=== PATIENT | female | born 1955 | race Caucasian/White ===

== ENCOUNTER → 2017-09-25 | Outpatient (CLI) | payer OTHER ==
[2017-09-25 13:27] LABS: BASO # 0.1 10^3/uL (0.0-0.2); BASO % 1.2 % (0.0-1.0); EOS # 0.1 10^3/uL (0.0-0.50); EOS % 1.6 % (0.0-3.0); HEMATOCRIT 43.6 % (36.0-47.0); HEMOGLOBIN 15.2 g/dl (12.0-16.0); IMMATURE GRANULOCYTE % 0.2 % (0-3.0); LYMPH # 1.5 10^3/uL (1.5-4.5); LYMPH % 30.7 % (24.0-44.0); MEAN CORPUSCULAR HEMOGLOBIN 32.9 pg (27.0-33.0); MEAN CORPUSCULAR HGB CONC 34.9 g/dl (32.0-36.5); MEAN CORPUSCULAR VOLUME 94.4 fl (80.0-96.0); MONO # 0.4 10^3/uL (0.0-0.8); MONO % 8.2 % (0.0-5.0); NEUTROPHILS # 2.8 10^3/uL (1.8-7.7); NEUTROPHILS % 58.1 % (36.0-66.0); PLATELET COUNT, AUTOMATED 233 10^3/uL (150-450); RED BLOOD COUNT 4.62 10^6/uL (4.00-5.40); WHITE BLOOD COUNT 4.9 10^3/uL (4.0-10.0)
[2017-09-25 13:43] LABS: AMORPHOUS SEDIMENT LARGE (NEGATIVE); APPEARANCE, URINE TURBID (CLEAR); BACTERIA, URINE AUTO NEGATIVE (NEGATIVE); BILIRUBIN, URINE AUTO NEGATIVE (NEGATIVE); BLOOD, URINE BLOOD NEGATIVE (NEGATIVE); COLOR, URINE YELLOW (YELLOW); GLUCOSE, URINE (UA) AUTO NEGATIVE (NEGATIVE); KETONE, URINE AUTO NEGATIVE (NEGATIVE); LEUKOCYTE ESTERASE, URINE AUTO NEGATIVE (NEGATIVE); MUCUS, URINE SMALL (NEGATIVE); NITRITE, URINE AUTO NEGATIVE (NEGATIVE); PROTEIN, URINE AUTO NEGATIVE (NEGATIVE); RBC, URINE AUTO 0 /HPF (0-3); SPECIFIC GRAVITY URINE AUTO 1.025 (1.002-1.035); SQUAMOUS EPITHELIAL CELL UR AU 0 /HPF (0-6); UROBILINOGEN, URINE AUTO 0.2 mg/dL (0.0-2.0); WBC, URINE AUTO 0 /HPF (0-3)
[2017-09-25 14:05] LABS: TOTAL 25(OH) VITAMIN D 18.6 NG/ML (30.0-100.0)
[2017-09-25 14:23] LABS: ESTIMATED AVERAGE GLUCOSE 120 MG/DL (60-110); HEMOGLOBIN A1c 5.8 %
[2017-09-25 14:38] LABS: ALBUMIN 4.1 GM/DL (3.2-5.2); ALBUMIN/GLOBULIN RATIO 1.21 (1.00-1.93); ALKALINE PHOSPHATASE 54 U/L (45-117); ALT/SGPT 58 U/L (12-78); ANION GAP 7 MEQ/L (8-16); AST/SGOT 38 U/L (7-37); BILIRUBIN,TOTAL 0.6 MG/DL (0.2-1.0); BLOOD UREA NITROGEN 14 MG/DL (7-18); CALCIUM LEVEL 9.5 MG/DL (8.8-10.2); CARBON DIOXIDE LEVEL 31 MEQ/L (21-32); CHLORIDE LEVEL 102 MEQ/L (98-107); CHOLESTEROL LEVEL 291 MG/DL (<200); CHOLESTEROL RISK RATIO 6.191 (<5); CREATININE FOR GFR 0.68 MG/DL (0.55-1.30); FREE T4 1.01 NG/DL (0.76-1.46); GLOMERULAR FILTRATION RATE > 60.0 (>45); GLUCOSE, FASTING 103 MG/DL (70-100); HDL CHOLESTEROL 47 MG/DL (>40); NON-HDL-C 244 MG/DL; POTASSIUM SERUM 4.1 MEQ/L (3.5-5.1); SODIUM LEVEL 140 MEQ/L (136-145); TOTAL PROTEIN 7.5 GM/DL (6.4-8.2); TRIGLYCERIDES LEVEL 240 MG/DL (<150)
== END ==
LOC: M WUC 09:47
DX: I10 Essential (primary) hypertension (principal); E78.5 Hyperlipidemia, unspecified; E66.3 Overweight
CPT/HCPCS: 84443

== ENCOUNTER 2018-02-02 08:10 | Day surgery (SDC) | payer OTHER ==
[2018-02-02] MEDS ORDERED: LIDOCAINE 2% INJ 100 MG/5 ML SDV (FOR ANES.) As Ordered (09:02)
[2018-02-02] MEDS ORDERED: PROPOFOL 200 MG/20 ML VIAL As Ordered ×2 (09:02→09:25)
[2018-02-02] MEDS ORDERED: LABETALOL HCL 100 MG/20 ML VIAL As Ordered (09:12)
[2018-02-02] MEDS ORDERED: NS 1,000 ML IV (09:15)
== END 2018-02-02 10:00 | disposition home or self-care (01) ==
LOC: M OPP 08:10
DX: Z12.11 Encounter for screening for malignant neoplasm of colon (principal); Z86.010 Personal history of colon polyps; D12.5 Benign neoplasm of sigmoid colon; D12.0 Benign neoplasm of cecum; K57.30 Diverticulosis of large intestine without perforation or abscess without bleeding; I10 Essential (primary) hypertension; E78.5 Hyperlipidemia, unspecified; K58.9 Irritable bowel syndrome, unspecified; M19.90 Unspecified osteoarthritis, unspecified site; Z78.0 Asymptomatic menopausal state; J45.909 Unspecified asthma, uncomplicated; Z88.8 Allergy status to other drugs, medicaments and biological substances; Z91.018 Allergy to other foods; Z80.3 Family history of malignant neoplasm of breast; Z79.899 Other long term (current) drug therapy
CPT/HCPCS: 45380

== ENCOUNTER → 2018-03-19 | Outpatient (CLI) | payer OTHER ==
[2018-03-19 16:03] LABS: ALBUMIN 4.1 GM/DL (3.2-5.2); ALBUMIN/GLOBULIN RATIO 1.24 (1.00-1.93); ALKALINE PHOSPHATASE 55 U/L (45-117); ALT/SGPT 55 U/L (12-78); AST/SGOT 36 U/L (7-37); BILIRUBIN,DIRECT 0.2 MG/DL (0.0-0.2); BILIRUBIN,TOTAL 0.7 MG/DL (0.2-1.0); CHOLESTEROL LEVEL 244 MG/DL (<200); CHOLESTEROL RISK RATIO 4.692 (<5); HDL CHOLESTEROL 52 MG/DL (>40); LDL CHOLESTEROL 159 MG/DL (<100); NON-HDL-C 192 MG/DL; TOTAL PROTEIN 7.4 GM/DL (6.4-8.2); TRIGLYCERIDES LEVEL 167 MG/DL (<150)
== END ==
LOC: M WUC 11:08
DX: E78.5 Hyperlipidemia, unspecified (principal)
CPT/HCPCS: 80076

== ENCOUNTER → 2018-04-22 | Outpatient (CLI) | payer OTHER | LOC: M RAD 11:03 | DX: Z12.31 Encounter for screening mammogram for malignant neoplasm of breast (principal); Z78.0 Asymptomatic menopausal state | CPT/HCPCS: 77067 ==

== ENCOUNTER → 2018-10-20 | Outpatient (CLI) | payer OTHER ==
[~2018-10-20] MED LIST: ALBU17IN2 INH; ATOR1TAB19; HYDR25TAB; LISI10TA4; MONT10TA2; MULT1TAB10 PO; NATU1TAB5; VITA500T3 PO; VITA50TA43 PO
[2018-10-20 12:52] LABS: BASO # 0.1 10^3/uL (0.0-0.2); BASO % 1.3 % (0.0-1.0); EOS # 0.1 10^3/uL (0.0-0.50); EOS % 2.6 % (0.0-3.0); HEMATOCRIT 41.1 % (36.0-47.0); LYMPH # 1.4 10^3/uL (1.5-4.5); LYMPH % 28.8 % (24.0-44.0); MEAN CORPUSCULAR HEMOGLOBIN 32.6 pg (27.0-33.0); MEAN CORPUSCULAR HGB CONC 34.1 g/dl (32.0-36.5); MEAN CORPUSCULAR VOLUME 95.6 fl (80.0-96.0); MONO # 0.4 10^3/uL (0.0-0.8); MONO % 9.2 % (0.0-5.0); NEUTROPHILS # 2.7 10^3/uL (1.8-7.7); NEUTROPHILS % 57.7 % (36.0-66.0); PLATELET COUNT, AUTOMATED 244 10^3/uL (150-450); WHITE BLOOD COUNT 4.7 10^3/uL (4.0-10.0)
[2018-10-20 13:06] LABS: APPEARANCE, URINE CLEAR (CLEAR); BACTERIA, URINE AUTO NEGATIVE (NEGATIVE); BILIRUBIN, URINE AUTO NEGATIVE (NEGATIVE); BLOOD, URINE BLOOD NEGATIVE (NEGATIVE); COLOR, URINE YELLOW (YELLOW); GLUCOSE, URINE (UA) AUTO NEGATIVE (NEGATIVE); KETONE, URINE AUTO NEGATIVE (NEGATIVE); LEUKOCYTE ESTERASE, URINE AUTO NEGATIVE (NEGATIVE); MUCUS, URINE SMALL (NEGATIVE); NITRITE, URINE AUTO NEGATIVE (NEGATIVE); PROTEIN, URINE AUTO NEGATIVE (NEGATIVE); RBC, URINE AUTO 1 /HPF (0-3); SPECIFIC GRAVITY URINE AUTO 1.027 (1.002-1.035); SQUAMOUS EPITHELIAL CELL UR AU 0 /HPF (0-6); UROBILINOGEN, URINE AUTO 0.2 mg/dL (0.0-2.0); WBC, URINE AUTO 0 /HPF (0-3)
[2018-10-20 13:26] LABS: ALBUMIN 3.8 GM/DL (3.2-5.2); ALT/SGPT 35 U/L (12-78); BILIRUBIN,TOTAL 0.5 MG/DL (0.2-1.0); BLOOD UREA NITROGEN 12 MG/DL (7-18); CALCIUM LEVEL 9.4 MG/DL (8.8-10.2); CARBON DIOXIDE LEVEL 31 MEQ/L (21-32); CHLORIDE LEVEL 106 MEQ/L (98-107); CHOLESTEROL LEVEL 271 MG/DL (<200); CHOLESTEROL RISK RATIO 5.313 (<5); CREATININE FOR GFR 0.65 MG/DL (0.55-1.30); FREE T4 1.06 NG/DL (0.76-1.46); GLOMERULAR FILTRATION RATE > 60.0 (>45); GLUCOSE, FASTING 101 MG/DL (70-100); HDL CHOLESTEROL 51 MG/DL (>40); LDL CHOLESTEROL 190 MG/DL (<100); MAGNESIUM LEVEL 2.1 MG/DL (1.8-2.4); NON-HDL-C 220 MG/DL; POTASSIUM SERUM 4.4 MEQ/L (3.5-5.1); SODIUM LEVEL 141 MEQ/L (136-145); THYROID STIMULATING HORMONE 0.961 uIU/ML (0.358-3.740); TOTAL 25(OH) VITAMIN D 69.3 NG/ML (30.0-100.0); TOTAL PROTEIN 6.5 GM/DL (6.4-8.2); TRIGLYCERIDES LEVEL 149 MG/DL (<150)
[2018-10-20 13:38] LABS: HEMOGLOBIN A1c 5.9 %
== END ==
LOC: M WUC 10:31
PROVIDERS: ATTEND Physician Assistant
DX: I10 Essential (primary) hypertension (principal)

== ENCOUNTER → 2018-12-16 | Outpatient (CLI) | payer OTHER ==
--- NOTE | 2018-12-16 10:26 | REP ---
RIGHT KNEE, FIVE VIEWS: HISTORY: Knee pain. There is no acute fracture or dislocation. There is mild narrowing of the medial knee joint space and medial patellofemoral joint space. There is minimal narrowing of the lateral knee joint space. Osteophytes are present on the patella and tibia. IMPRESSION:Degenerative change as described above. Electronically Signed by Ab Franco MD 12/16/2018 10:28 A
== END ==
LOC: M WUC 09:58
PROVIDERS: ATTEND Physician Assistant
DX: M17.11 Unilateral primary osteoarthritis, right knee (principal); M25.761 Osteophyte, right knee

== ENCOUNTER 2020-07-11 06:13 | Observation (INO) | payer OTHER ==
[~2020-07-11] VITALS: Ht 162.6 cm; Wt 76.8 kg
[~2020-07-11 06:13] MED LIST changes: -ALBU17IN2 INH; +CYAN500T14 PO; -HYDR25TAB; +HYDR25TAB PO; -LISI10TA4; +LISI10TA4 PO; -MONT10TA2; +MONT5TAB2 PO; +PROV108A INH; -VITA500T3 PO
[2020-07-11 07:04] LABS: BASO # 0.1 10^3/uL (0.0-0.2); EOS # 0.1 10^3/uL (0.0-0.5); HEMATOCRIT 44.4 % (36.0-47.0); HEMOGLOBIN 14.6 g/dl (12.0-15.5); LYMPH % 15.1 % (24.0-44.0); MEAN CORPUSCULAR HEMOGLOBIN 31.9 pg (27.0-33.0); MEAN CORPUSCULAR HGB CONC 32.9 g/dl (32.0-36.5); MEAN CORPUSCULAR VOLUME 96.9 fl (80.0-96.0); MONO # 0.3 10^3/uL (0.0-0.8); NEUTROPHILS # 5.3 10^3/uL (1.5-8.5); NEUTROPHILS % 78.3 % (36.0-66.0); PLATELET COUNT, AUTOMATED 248 10^3/uL (150-450); RED BLOOD COUNT 4.58 10^6/uL (4.00-5.40); WHITE BLOOD COUNT 6.8 10^3/uL (4.0-10.0)
--- NOTE | 2020-07-11 07:13 | REPVR ---
PROCEDURE INFORMATION: Exam: XR Chest, 1 View Exam date and time: 07/11/2020 6:55 AM Age: 65 years old Clinical indication: Cough and dyspnea; Additional info: Dyspnea/cough TECHNIQUE: Imaging protocol: XR of the chest Views: 1 view. COMPARISON: No relevant prior studies available. FINDINGS: Lungs: Unremarkable. No consolidation. Pleural space: Unremarkable. No pleural effusion. No pneumothorax. Heart/Mediastinum: Unremarkable. No cardiomegaly. Bones/joints: Unremarkable. IMPRESSION: No evidence for acute pulmonary disease. Electronically signed by: Lebron Gallegos On 07/11/2020 07:13:38 AM
[2020-07-11] MEDS ORDERED: methylPREDNISolone 125MG 2ML VIAL IV ONE (07:15)
[2020-07-11 07:23] LABS: INR 0.89; PROTHROMBIN TIME 12.2 SECONDS (12.5-14.3)
[2020-07-11 07:24] LABS: PARTIAL THROMBOPLASTIN TIME 24.3 SECONDS (24.2-38.5)
[2020-07-11 07:27] LABS: D-DIMER QUANT 476.01 ng/ml (<500)
[2020-07-11 07:29] LABS: ALBUMIN 4.1 GM/DL (3.2-5.2); ALT/SGPT 53 U/L (12-78); BILIRUBIN,DIRECT 0.1 MG/DL (0.0-0.2); BILIRUBIN,TOTAL 0.4 MG/DL (0.2-1.0); BLOOD UREA NITROGEN 16 MG/DL (7-18); CALCIUM LEVEL 9.4 MG/DL (8.8-10.2); CARBON DIOXIDE LEVEL 29 MEQ/L (21-32); CHLORIDE LEVEL 101 MEQ/L (98-107); CK-MB VALUE MASS 4.7 NG/ML (<3.6); CPK CREATINE PHOSPHOKINASE 217 U/L (26-192); CREATININE FOR GFR 0.85 MG/DL (0.55-1.30); GLOMERULAR FILTRATION RATE > 60.0 (>45); GLUCOSE, FASTING 129 MG/DL (70-100); MB/CK RELATIVE INDEX 2.17 (< OR =4); POTASSIUM SERUM 3.7 MEQ/L (3.5-5.1); SODIUM LEVEL 136 MEQ/L (136-145); TOTAL PROTEIN 7.8 GM/DL (6.4-8.2); TROPONIN I < 0.02 NG/ML (< 0.10)
[2020-07-11 07:44] LABS: C REACTIVE PROTEIN QUANTITATIV 0.34 MG/DL (0.00-0.30); FERRITIN 265 NG/ML (8-252); LDH LACTATE DEHYDROGENASE 213 U/L (84-246); MAGNESIUM LEVEL 1.8 MG/DL (1.8-2.4)
[2020-07-11 07:51] LABS: ABG BASE EXCESS 0.4 (-2.0-2.0); ABG HCO3 24.5 MEQ/L (22.0-26.0); ABG PARTIAL PRESSURE CO2 37.9 mmHg (35.0-45.0); ABG PARTIAL PRESSURE O2 78.5 mmHg (75.0-100.0); ABG STANDARD HCO3 24.8 MEQ/L (22.0-26.0); ABG TOTAL CO2 25.6 MEQ/L (23.0-31.0); ABG pH (ARTERIAL) 7.428 UNITS (7.350-7.450)
[2020-07-11] MEDS: COMBIVENT RESPIMAT 100-20MCG INHALER 4GM INH SCH ×3 (07:56→09:36)
[2020-07-11] MEDS ORDERED: ISOVUE-370 76% 100ML VIAL As Ordered ONE (07:59)
--- NOTE | 2020-07-11 08:52 | REP ---
INDICATION: sob, out of quarantine covid positive COMPARISON: None. TECHNIQUE: Axial contrast enhanced images from the thoracic inlet to the upper abdomen using pulmonary embolus technique with multiplanar re-formations. 75 ml Isovue 370 intravenous contrast material administered without complication. This CT examination was performed using the following dose reduction techniques: Automated exposure control, adjustment of mA and/or kv according to the patient's size, and use of iterative reconstruction technique. FINDINGS: Satisfactory enhancement of the pulmonary vasculature is achieved and no filling defects are identified to suggest pulmonary embolus. Further evaluation of the mediastinum demonstrates relatively normal thoracic aorta without aneurysm or dissection. Heart and pericardium are normal. The bilateral lung hoffman are well aerated and without consolidation or airspace disease. No pleural effusion. No pneumothorax. Tracheobronchial tree is patent. No significant adenopathy. Surrounding musculoskeletal structures are intact. Upper abdomen demonstrates hepatosteatosis. IMPRESSION: No evidence for pulmonary embolus. No acute mediastinal or pleural parenchymal process. <Electronically signed by Tejas Matos > 07/11/20 2034
[2020-07-11 09:06] LABS: NT-PRO BNP 58 PG/ML (<125)
[2020-07-11] MEDS ORDERED: lisinopriL 10 MG TAB PO ONE ×2 (10:00)
[2020-07-11] MEDS ORDERED: hydroCHLOROthiazide 25 MG TAB PO ONE ×2 (10:00)
[2020-07-11] MEDS ORDERED: D 50CAP2 PO (10:15)
[2020-07-11] MEDS ORDERED: VITMTA PO (10:15)
[2020-07-11] MEDS ORDERED: ALBUTEROL SULFATE 2.5 MG/0.5 ML INH NEB SOLN INH PRN (11:15)
[2020-07-11] MEDS: ALBUTEROL SULFATE 2.5 MG/0.5 ML INH NEB SOLN INH SCH ×3 (12:00→19:34)
--- NOTE | 2020-07-11 12:01 | HPE ---
HISTORY AND PHYSICAL DATE OF ADMISSION: 07/11/2020 ADMITTING DIAGNOSIS: This is an observation bed admission for Zuly Grace, a 65-year-old with a history of asthma who feels too short of breath to be discharged. HISTORY OF PRESENT ILLNESS: She has a history of asthma. She was diagnosed with COVID infection earlier in June. She has been off quarantine for over the past week. She says she just feels tight in her chest as if she is not breathing well and feels that she needs to be admitted and watched for decompensation. MEDICAL HISTORY: She has a history of asthma. She has had no hospitalizations in many years. She has not required steroids in quite awhile. It sounds like her asthma was severe when she was younger and relatively quiet since then. It looks like she is only on Singulair and an intermittent bronchodilator. No long-term inhaled steroid needed. Other past medical history shows hypertension for which she takes hydrochlorothiazide, history of hyperlipidemia for which she is intermittently taking atorvastatin. SOCIAL HISTORY: Nonsmoker. Social alcohol use. She is . 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 FAMILY HISTORY: Positive for asthma. SURGICAL HISTORY: Tubal ligation, reversal of tubal ligation, various gynecologic procedures, ORIF right distal radius fracture. REVIEW OF SYSTEMS: No fevers or chills, palpitations. PHYSICAL EXAMINATION: VITAL SIGNS: Blood pressure 125/67, O2 saturation is 94% on room air, 97% when I was in the room with her, did not desaturate with walking. Temperature 98.6 degrees, respiratory rate around 16-18. GENERAL APPEARANCE: She looks mildly anxious. HEENT: Unremarkable. Pupils equal, round, reactive to light. Tympanic membranes (TMs) and oropharynx benign. NECK: No masses. LUNGS: A few crackles at the right base. Minimal wheezing. Good air movement. HEART: Regular rate and rhythm. No murmur. ABDOMEN: Soft, nontender. No masses. EXTREMITIES: No clubbing, cyanosis, or edema. Normal strength in the arms and legs. LABS: Sodium 136, potassium 3.7, BUN 16, creatinine 0.8, glucose 129. Lactic acid is normal. Ferritin and C-reactive protein are almost normal at 265 and 0.3 respectively. White count ____, hemoglobin 14.6, platelets 248. ABG 7.42/37/78. D-dimer is normal. Fibrinogen is normal. Chest x-ray showed no active disease. Enterographic CT of the chest showed no pulmonary embolism, infiltrate, or other abnormality. IMPRESSION: 1. Mild exacerbation of asthma. I think this is an anxiety component involved with this as well. Some of this I think is post-COVID recovery of her normal lung function. I will put her on observation bed, order nebulized bronchodilator and low dose intravenous steroid. I do not think she needs empiric antibiotic therapy unless her procalcitonin is elevated. 2. Recent COVID infection. She is past quarantine. Her inflammatory markers were all reassuring. I do not think they need to be repeated. 3. Hypertension. Continue her hydrochlorothiazide and Lisinopril. 4. DVT prophylaxis with Lovenox has been given.
[2020-07-11 14:30] VITALS: BP 145/88
[2020-07-11] MEDS ORDERED: ACETAMINOPHEN TAB 650MG DOSE (2X325MG) PO PRN (15:00)
[2020-07-11] MEDS: MONTELUKAST 10 MG TAB PO SCH (15:21)
[2020-07-11] MEDS: ENOXAPARIN 40MG/0.4ML SYRINGE (J1650 PER 10MG) SC SCH (15:23)
--- NOTE | 2020-07-11 17:36 | ECGEPIP ---
[facility] - ED Test Date: 2020-07-11 Pat Name: RUSS FLORESDepartment: Room: - Gender: Female Sales Person: : 1955 Requested By: SOPHIA Tinoco Order Number: [id number] Reading MD: Damari Quintana Measurements Intervals [place] Rate: 90 P: 55 MS: 172 QRS: -42 QRSD: 158 T: 87 QT: 408 QTc: 500 Interpretive Statements SINUS RHYTHM POSSIBLE LEFT ATRIAL ENLARGEMENT MARKED LEFT AXIS DEVIATION LEFT BUNDLE BRANCH BLOCK No prior Electronically Signed on 07-11-2020 17:36:10 EST by Damari Quintana
[2020-07-11 22:00] VITALS: BP 99/67
[2020-07-12 06:00] VITALS: BP 113/81
[2020-07-12 07:17] LABS: HEMATOCRIT 38.5 % (36.0-47.0); HEMOGLOBIN 12.7 g/dl (12.0-15.5); PLATELET COUNT, AUTOMATED 214 10^3/uL (150-450); RED BLOOD COUNT 3.97 10^6/uL (4.00-5.40); WHITE BLOOD COUNT 12.3 10^3/uL (4.0-10.0)
[2020-07-12 07:42] LABS: BLOOD UREA NITROGEN 17 MG/DL (7-18); CALCIUM LEVEL 9.4 MG/DL (8.8-10.2); CARBON DIOXIDE LEVEL 30 MEQ/L (21-32); CHLORIDE LEVEL 102 MEQ/L (98-107); GLOMERULAR FILTRATION RATE > 60.0 (>45); GLUCOSE, FASTING 109 MG/DL (70-100); POTASSIUM SERUM 3.8 MEQ/L (3.5-5.1); SODIUM LEVEL 137 MEQ/L (136-145)
[2020-07-12] MEDS: ALBUTEROL SULFATE 2.5 MG/0.5 ML INH NEB SOLN INH SCH ×2 (07:42→11:20)
[2020-07-12] MEDS ORDERED: methylPREDNISolone 40MG 1ML VIAL IV SCH (09:00)
[2020-07-12] MEDS ORDERED: CYANOCOBALAMIN 500 MCG TAB PO SCH (09:00)
[2020-07-12] MEDS ORDERED: hydroCHLOROthiazide 25 MG TAB PO SCH (09:00)
[2020-07-12] MEDS ORDERED: PYRIDOXINE 50 MG TAB PO SCH (09:00)
[2020-07-12] MEDS ORDERED: MULTIVITAMINS/MINERALS THERAP 1 TAB PO SCH (09:00)
[2020-07-12] MEDS ORDERED: lisinopriL 10 MG TAB PO SCH (09:00)
[2020-07-12] MEDS: ENOXAPARIN 40MG/0.4ML SYRINGE (J1650 PER 10MG) SC SCH (09:27)
[2020-07-12] MEDS: MONTELUKAST 10 MG TAB PO SCH (09:28)
[2020-07-12 09:29] VITALS: BP 124/76
[2020-07-12] MEDS ORDERED: PRED20TA PO (10:47)
--- NOTE | 2020-07-12 11:21 | DSES ---
DISCHARGE SUMMARY DATE OF ADMISSION: 07/11/2020 DATE OF DISCHARGE: 07/12/2020 PRINCIPAL DIAGNOSIS: Mild exacerbation of asthma. SECONDARY DIAGNOSES: 1. Situational anxiety. 2. History of hypertension. 3. History of hyperlipidemia. 4. History of recent coronavirus disease (COVID) infection. 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 She is off quarantine. She still does not feel "right" with tightness in her chest and dizziness and lightheadedness. She was seen in the Emergency Room, felt to be stable for discharge but the patient became dizzy when they stood her up to go home so she was watched overnight. HOSPITAL COURSE: The patient was admitted to a medical bed. I think most of her symptomatology is anxiety-related to her recent COVID infection. She was given a single dose of intravenous steroid, nebulized bronchodilator and she seemed to have responded well to this. Her lungs are entirely clear and O2 saturation is normal. O2 saturation with exertion is 96-98%. She still has some lightheadedness which I think is post-COVID related and should leticia over the next several weeks. Toward that end I would recommend that she stop her hydrochlorothiazide as blood pressures were a little low this morning and that may be contributing. SIGNIFICANT LABS: CBC, BMP were all unremarkable on admission. White count is 12.3 today but she has been on steroids. Electrolytes unremarkable. CRP was low. Fibrinogen and d-dimer were all within normal limits. DISPOSITION: She is discharged home improved in stable condition. She will follow up with her primary care provider, Dr. Araujo in [place] in a week. Her activity is as tolerated. She should not work until she is cleared by her primary care physician. We discussed today that COVID infections are not well fully understood yet and the half-way implications are unknown. Many patients describe some prolonged breathlessness or generalized weakness and we do not have specific therapy for that. She will be discharged home on a no added salt diet. No working until cleared by her primary care provider. DISCHARGE MEDICATIONS: Her medicines on discharge will continue to be: - Albuterol on an as-needed basis - Vitamin B12 - Lisinopril 10 mg daily - Singulair 10 mg daily - Vitamin B6 - Multivitamin - We are stopping her hydrochlorothiazide 25 mg daily - I prescribed Prednisone 20 mg twice a day for five days At the time of this dictation there are no pending labs.
== END 2020-07-12 13:45 | disposition home health service (06) ==
LOC: M ED 06:13 → M ED INP 06:14 → ENRESERV 13:00 → M MS5PR 14:47
PROVIDERS: ADMIT Family Medicine; ATTEND Family Medicine
DX: J45.901 Unspecified asthma with (acute) exacerbation (principal); F43.0 Acute stress reaction; I10 Essential (primary) hypertension; E78.49 Other hyperlipidemia; Z79.51 Long term (current) use of inhaled steroids; Z79.899 Other long term (current) drug therapy
CPT/HCPCS: 36415; 36600; 71045; 71275; 80048; 80076; 82550; 82553; 82728; 82803; 83605; 83615; 83735; 83880; 84145; 84484; 85025; 85027; 85379; 85384; 85610; 85730; 86140; 87040; 93005; 93041; 94640; 96372; 96374; 96376; 99285; J1650; J2920; J2930; Q9967

== ENCOUNTER 2024-06-18 11:24 | Day surgery (SDC) | payer MEDICARE ==
[~2024-06-18] VITALS: Ht 161.3 cm; Wt 70.8 kg
[~2024-06-18 11:24] MED LIST changes: +ALBU6.7H6 INH; +ATOR40TA75 PO; +D 50CAP2 PO; +HYDR-3490 PO; -HYDR25TAB PO; +LISI10TA22 PO; -LISI10TA4 PO; +MONT10TA97 PO; -MONT5TAB2 PO; +PRED1TABL PO; +PRED20TA PO; -PROV108A INH; +THERTAB52 PO; +VENTAER INH; +VITMTA PO
[2024-06-18] MEDS ORDERED: propofoL 200 MG/20 ML VIAL As Ordered ONE (13:02)
[2024-06-18 13:28] VITALS: TEMP 97.8
[2024-06-18 13:47] VITALS: BP 116/78; O2SAT 97
== END 2024-06-18 13:54 | disposition home or self-care (01) ==
LOC: M OPP 11:24
PROVIDERS: ATTEND Surgery
DX: Z12.11 Encounter for screening for malignant neoplasm of colon (principal); K63.5 Polyp of colon; K57.30 Diverticulosis of large intestine without perforation or abscess without bleeding; K64.9 Unspecified hemorrhoids; K21.9 Gastro-esophageal reflux disease without esophagitis; K58.9 Irritable bowel syndrome, unspecified; Z86.0100 Personal history of colon polyps, unspecified; I10 Essential (primary) hypertension; E78.00 Pure hypercholesterolemia, unspecified; J45.909 Unspecified asthma, uncomplicated; Z79.899 Other long term (current) drug therapy; Z88.6 Allergy status to analgesic agent; Z91.018 Allergy to other foods